=== PATIENT | male | born 1990 | race Caucasian/White ===

== ENCOUNTER 2018-11-08 10:49 | Day surgery (SDC) | payer BC ==
[~2018-11-08 10:49] MED LIST: Lactated Ringers 1,000 ML IV SCH; Lidocaine 1% 4 ML ONE; Lidocaine 1%/Sod Bicarbonate in NS 8.4% 1 ML Syringe IDERM PRN; Midazolam 1 MG/ML 2 ML SDV ONE; Propofol 200 MG/20 ML SDV ONE; Sodium Chloride 0.9% 10 ML Syringe FLUSH PRN; fentaNYL 250 MCG/5 ML SDV ONE
--- NOTE | 2018-11-08 11:34 | PCM.PREANE ---
Preanesthetic Assessment - Procedure Proposed Procedure: ORIF of Left Medial Malleolus - Anesthesia/Transfusion/Family Hx Anesthesia History: No Prior Anesthesia Family History of Anesthesia Reaction: No Transfusion History: No Prior Transfusion(s) Intubation History: Unknown - Review of Systems General: Other (post nasal drip from cold per patient ) Pulmonary: No Symptoms Cardiovascular: No Symptoms Gastrointestinal: No Symptoms Neurological: No Symptoms Other: Reports: None - Physical Assessment NPO Status Date: 11/08/18 NPO Status Time: 00:30 Pulse: 78 O2 Sat by Pulse Oximetry: 100 Respiratory Rate: 16 Blood Pressure: 135/77 Temperature: 36.5 C Vital Signs: Last Vital Signs Temp 36.5 C 11/08/18 11:00 Pulse 78 11/08/18 11:00 Resp 16 11/08/18 11:00 BP 135/77 11/08/18 11:00 Pulse Ox 100 11/08/18 11:00 Height: 1.88 m ASA Class: 2 Mental Status: Alert & Oriented x3 Airway Class: Mallampati = 1 Dentition: Reports: Normal Dentition Thyro-Mental Finger Breadths: 3 Mouth Opening Finger Breadths: 6 Lungs: Clear to Auscultation, Normal Respiratory Effort Cardiovascular: Regular Rate, Regular Rhythm - Allergies Allergies/Adverse Reactions: Allergies Allergy/AdvReac Type Severity Reaction Status Date / Time No Known Allergies Allergy Verified 11/07/18 16:37 - Blood Blood Available: No - Anesthesia Plan Pre-Op Medication Ordered: None - Acknowledgements Anesthesia Type Planned: General Anesthesia Pt an Appropriate Candidate for the Planned Anesthesia: Yes Alternatives and Risks of Anesthesia Discussed w Pt/Guardian: Yes Pt/Guardian Understands and Agrees with Anesthesia Plan: Yes PreAnesthesia Questionnaire - Past Health History Medical/Surgical History: Denies Medical/Surgical History HEENT History: Reports: Impaired Vision Psychiatric History: Reports: ADD - SUBSTANCE USE Smoking Status *Q: Current Some Day Smoker Recreational Drug Use History: No - HOME MEDS Home Medications: Home Meds Amphetamine/Dextroamphetamine [Adderall XR] 25 mg PO QAM 11/07/18 [History] Dextroamphetamine/Amphetamine [Adderall 5 mg Tablet] 5 mg PO QPM PRN 11/07/18 [ History] Hydrocodone/Acetaminophen [Winigan 5-325 Tablet] 1 tab PO Q4H PRN 02/11/19 [ History] - CURRENT (IN HOUSE) MEDS Current Meds: Current Medications Lactated Ringer's (Ringers, Lactated) 1,000 mls @ 125 mls/hr IV ASDIRECTED GREGORIO Stop: 11/08/18 23:00 Lidocaine/Sodium Bicarbonate (Buffered Lidocaine 1% In Ns 8.4%) 0.25 ml IDERM ONETIME PRN PRN Reason: Prior to IV Start Stop: 11/08/18 18:00 Sodium Chloride (Saline Flush) 10 ml FLUSH ASDIRECTED PRN PRN Reason: Keep Vein Open Stop: 11/08/18 18:00 Discontinued Medications Fentanyl (Sublimaze) Confirm Administered Dose 250 mcg .ROUTE .STK-MED ONE Stop: 11/08/18 10:31 Lidocaine HCl (Xylocaine-Mpf 1%) Confirm Administered Dose 4 mls @ as directed .ROUTE .STK-MED ONE Stop: 11/08/18 10:31 Midazolam HCl (Versed 1 Mg/Ml) Confirm Administered Dose 2 mg .ROUTE .STK-MED ONE Stop: 11/08/18 10:31 Propofol (Diprivan 20 Ml) Confirm Administered Dose 200 mg .ROUTE .STK-MED ONE Stop: 11/08/18 10:30
[2018-11-08] MEDS ORDERED: Midazolam 1 MG/ML 2 ML SDV ONE (11:49)
[2018-11-08] MEDS ORDERED: ceFAZolin 1 GM Vial ONE (11:50)
[2018-11-08] MEDS ORDERED: Propofol 200 MG/20 ML SDV ONE (11:51)
[2018-11-08] MEDS ORDERED: Ondansetron 4 MG/2 ML SDV ONE (11:56)
[2018-11-08] MEDS ORDERED: Dexamethasone 4 MG/ML SDV ONE (11:56)
[2018-11-08] MEDS ORDERED: Ketorolac 30 MG/ML SDV ONE (12:28)
[2018-11-08] MEDS ORDERED: HYDROmorphone 0.5 MG/0.5 ML Syringe ONE ×3 (12:29→12:53)
[2018-11-08] MEDS: Bupivacaine 0.25% 30 ML SDV ONE ×2 (12:40→12:49)
[2018-11-08] MEDS ORDERED: Ondansetron 4 MG/2 ML SDV IVPUSH PRN (13:49)
[2018-11-08] MEDS ORDERED: diphenhydrAMINE 50 MG/ML SDV IVPUSH PRN (13:49)
[2018-11-08] MEDS ORDERED: fentaNYL 100 MCG/2 ML SDV IVPUSH PRN (13:49)
[2018-11-08] MEDS ORDERED: HYDROmorphone 0.5 MG/0.5 ML Syringe IVPUSH PRN (13:51)
--- NOTE | 2018-11-08 13:54 | PCM.POSTAN ---
POST ANESTHESIA ASSESSMENT - MENTAL STATUS Mental Status: Alert, Other (drowsy ) - VITAL SIGNS Pulse Rate: 53 SaO2: 100 Resp Rate: 14 Blood Pressure: 118/66 Temperature: 36.6 C - RESPIRATORY Respiratory Status: Respiratory Rate WNL, Airway Patent, O2 Saturation Stable - CARDIOVASCULAR CV Status: Pulse Rate WNL, Blood Pressure Stable - GASTROINTESTINAL GI Status: No Symptoms - POST OP HYDRATION Hydration Status: Adequate & Stable
[2018-11-08] MEDS ORDERED: Lactated Ringers 1,000 ML ONE (14:12)
--- NOTE | 2018-11-08 14:23 | CR ---
Left ankle: Seven fluoroscopic spot views of the left ankle were obtained. Comparison: No prior ankle exam. Medial malleolus fracture is seen. Study shows placement of two screws across the fracture. Fracture appears anatomic in alignment. Ankle mortise is symmetric. Fluoroscopy time is given as 32.4 seconds. Impression: 1. Procedural study as described above. Diagnostic code #2
--- NOTE | 2018-11-08 14:25 | PCM48HPAN ---
Post Anesthesia Note - EVALUATION WITHIN 48HRS OF ANESTHETIC Vital Signs in Normal Range: Yes Patient Participated in Evaluation: Yes Respiratory Function Stable: Yes Airway Patent: Yes Cardiovascular Function Stable: Yes Hydration Status Stable: Yes Pain Control Satisfactory: Yes Nausea and Vomiting Control Satisfactory: Yes Mental Status Recovered: Yes Pulse Rate: 53 SaO2: 99 Resp Rate: 14 Temperature: 36.6 C Blood Pressure: 118/66 - COMMENTS/OBSERVATIONS Free Text/Narrative:: Patient meets PACU discharge criteria. No issues with patient per STUDENT COUNSELOR.
[2018-11-08] MEDS ORDERED: Acetaminophen/HYDROcodone 325-5 MG Tab PO PRN (14:44)
--- NOTE | 2018-11-10 06:56 | PCM.OPNOTE ---
- General Post-Op/Procedure Note Date of Surgery/Procedure: 11/08/18 Operative Procedure(s): open reduction internal fixation of left medial malleolus fracture Pre Op Diagnosis: displaced left medial malleolus fracture Post-Op Diagnosis: Same Anesthesia Technique: General LMA, Local Primary Surgeon: Tunde Pimentel Anesthesia Provider: Kimber FERRO in mLs: 5 Complications: None Condition: Good
--- NOTE | 2018-11-10 07:23 | OR ---
DATE OF OPERATION: 11/08/2018 SURGEON: Tunde Pimentel MD OPERATIVE PROCEDURE: Open reduction internal fixation, left medial malleolus fracture. PREOPERATIVE DIAGNOSIS: Displaced left medial malleolus fracture. POSTOPERATIVE DIAGNOSIS: Displaced left medial malleolus fracture. ANESTHESIA: General LMA with local. ANESTHESIA PROVIDER: Kimber Archer. WATERMELON INSPECTOR: None. ESTIMATED BLOOD LOSS: 5 mL. COMPLICATIONS: None. CONDITION: Stable. DESCRIPTION OF PROCEDURE: The patient was identified in the preop holding area. Proper site was marked and identified by surgeon. The patient was taken back to the OR after adequate anesthesia. The patient had a nonsterile tourniquet applied left lower extremity. It was then sterilely prepped and draped in the usual sterile fashion. OR time-out was performed. The patient received 2 g IV Ancef. The left lower extremity was then exsanguinated. Tourniquet was insufflated 250 mmHg. Standard curvilinear incision was made centered over the medial malleolus. The neurovascular bundle was protected and brought anteriorly. The fracture site was then identified. It was curetted and rongeured of all fracture hematoma. All periosteum was removed from the fracture site, and I was able to see anteriorly to make sure to get an adequate reduction. At this time, a [id number] reduction clamp was used for an adequate reduction. Two K- wires for 4-0 cannulated Pierson screws were then placed. They were found to be in adequate position on AP and lateral views of the ankle with adequate anatomic reduction of the medial malleolus. At this time, drill was used just through the near cortex and then two 46 mm in length 4-0 [place] cannulated screws were placed. Fracture site was found to have good compression with no signs of displacement. Adequate saline was then irrigated through the wound. 2-0 Vicryl was used subcutaneously. Charlotte used for the skin. The patient was placed in a sterile soft dressing and posterior slab splint and sent back in stable condition. OPERATION PERFORMED: MMODAL /[id number]
== END 2018-11-08 16:00 | disposition home or self-care (01) ==
LOC: JD.SDS 10:49
PROVIDERS: ATTEND Orthopaedic Surgery
DX: S82.52XA Displaced fracture of medial malleolus of left tibia, initial encounter for closed fracture (principal); F17.200 Nicotine dependence, unspecified, uncomplicated; F98.8 Other specified behavioral and emotional disorders with onset usually occurring in childhood and adolescence; V00.311A Fall from snowboard, initial encounter; Z79.899 Other long term (current) drug therapy
CPT/HCPCS: 27766; 76000; A9270; J0690; J1100; J1170; J1885; J2001; J2250; J2405; J2704; J3010; J3490; J7120; 01480